=== PATIENT | female | born 1965 | race African-American/Black ===

== ENCOUNTER 2017-12-22 13:25 | Outpatient (CLI) | payer OTHER | END 2017-12-22 19:33 | disposition home or self-care (01) | LOC: RAD 13:25 | DX: M25.552 Pain in left hip (principal) ==

== ENCOUNTER 2018-07-19 14:00 | Outpatient (CLI) | payer OTHER | END 2018-07-19 23:13 | disposition home or self-care (01) | LOC: LABW 14:00 | DX: R10.84 Generalized abdominal pain (principal) | CPT/HCPCS: 36415; 82150; 83690; 86677 ==

== ENCOUNTER 2018-08-16 08:53 | Day surgery (SDC) | payer OTHER | END 2018-08-16 12:25 | disposition home or self-care (01) | LOC: OR 08:53 | PROC: 0DB68ZZ Excision of Stomach, Via Natural or Artificial Opening Endoscopic (ICD-10-PCS; principal; 2018-08-16) | PROC: 0DB88ZZ Excision of Small Intestine, Via Natural or Artificial Opening Endoscopic (ICD-10-PCS; 2018-08-16) | DX: K26.9 Duodenal ulcer, unspecified as acute or chronic, without hemorrhage or perforation (principal); K29.80 Duodenitis without bleeding; K29.50 Unspecified chronic gastritis without bleeding; K21.0 Gastro-esophageal reflux disease with esophagitis; R10.13 Epigastric pain; R14.3 Flatulence; R14.0 Abdominal distension (gaseous) | CPT/HCPCS: J2001; J2250; J2405; J2704 ==

== ENCOUNTER 2018-08-30 10:28 | Day surgery (SDC) | payer OTHER | END 2018-08-30 13:30 | disposition home or self-care (01) | LOC: OR 10:28 | PROC: 0DJD8ZZ Inspection of Lower Intestinal Tract, Via Natural or Artificial Opening Endoscopic (ICD-10-PCS; principal; 2018-08-30) | DX: K57.30 Diverticulosis of large intestine without perforation or abscess without bleeding (principal); K64.8 Other hemorrhoids; Z12.11 Encounter for screening for malignant neoplasm of colon | CPT/HCPCS: J2001; J2250; J2405; J2704; J3490 ==